=== PATIENT | female | born 1960 | race Caucasian/White ===

== ENCOUNTER → 2016-06-22 20:08 | Outpatient (CLI) | payer OTHER ==
[2013-10-30 07:46] VITALS: BMI 43.3
[~2016-06-22 20:08] MED LIST: CYCLOBENZAPRINE10 MG PO; IMITREX100 MG PO; PROZAC10 MG PO; VICOPROFEN 7.5/1 TAB PO; XANAX0.5 MG PO
[2016-06-22 20:45] LABS: ALBUMIN 3.7 g/dL (3.4-5.0); ANION GAP 16.3 mmol/L (8-16); BILIRUBIN - TOTAL 0.21 mg/dL (0.2-1.3); CALCIUM 9.1 mg/dL (8.5-10.1); CARBON DIOXIDE 24.8 mmol/L (21.0-32.0); CHOL - HDL RATIO 2.8 ratio (2.3-4.1); CREATININE - SERUM 1.1 mg/dL (0.6-1.3); LDL-HDL RATIO 1.5 ratio (1.5-3.5); POTASSIUM - SERUM 4.1 mmol/L (3.5-5.1); PROTEIN - SERUM 7.8 g/dL (6.4-8.2)
== END | disposition home or self-care (01) ==
LOC: D.LABREF 20:08
PROVIDERS: Family Medicine
DX: Z00.00 Encounter for general adult medical examination without abnormal findings (principal)

== ENCOUNTER → 2016-08-10 15:46 | Outpatient (CLI) | payer OTHER ==
[2013-10-30 07:46] VITALS: BMI 43.3
== END | disposition home or self-care (01) ==
LOC: D.LAB 15:45
PROVIDERS: Internal Medicine Gastroenterology
DX: R19.7 Diarrhea, unspecified (principal); R10.30 Lower abdominal pain, unspecified; R19.4 Change in bowel habit

== ENCOUNTER 2016-10-03 07:02 | Day surgery (SDC) | payer OTHER ==
[~2016-10-03] VITALS: Ht 165.1 cm; Wt 136.4 kg
[2016-10-03 07:53] VITALS: BP 119/68; Ht 165.1 cm; Wt 136.4 kg
[2016-10-03 08:14] LABS: BASOPHILS 0.5 % (0-2); EOSINOPHILS 3.9 % (0-7); HEMATOCRIT 43.2 % (36.0-48.0); HEMOGLOBIN 14.3 g/dL (12-16); IMMATURE GRANULOCYTES 0.2 % (0-5); LYMPHOCYTES 27.5 % (15-50); MCH 30.4 pg (26.0-34.0); MCHC 33.1 g/dL (31.0-37.0); MCV 91.9 fL (80.0-100.0); MEAN PLATELET VOLUME 11.4 fL (7.4-10.4); MONOCYTES 6.4 % (2-11); NEUTROPHILS 61.5 % (40-80); PLATELET COUNT 222 10x3/uL (130-400); RDW 13.3 % (11.5-14.5); WBC 5.6 10x3/uL (4.8-10.8)
[2016-10-03 08:26] LABS: ALBUMIN 3.3 g/dL (3.4-5.0); ALKALINE PHOSPHATASE 142 U/L (46-116); ALT (SGPT) 25 U/L (10-68); CALC OSMOLALITY 275 mosm/kg (275-300); CALCIUM 8.8 mg/dL (8.5-10.1); CHLORIDE - SERUM 105 mmol/L (98-107); CREATININE - SERUM 0.6 mg/dL (0.6-1.3); GLUCOSE 79 mg/dL (74-106); PROTEIN - SERUM 7.9 g/dL (6.4-8.2); SODIUM 139 mmol/L (136-145); UREA NITROGEN 11 mg/dL (7-18); eGFR NON AFRICAN AMERICAN > 90 mL/min (90-120)
--- NOTE | 2016-10-03 10:32 | NUR ---
MANUFACTURING QUALITY TECHNICIAN PRESENT FOR REDRAW OF K+.
--- NOTE | 2016-10-03 11:06 | NUR ---
1105 PIV DC W/CATHETER TIP INTACT JANNETTE WELL
--- NOTE | 2016-10-05 16:52 | OP ---
PATIENT NAME: EDELMIRA REYNA MEDICAL RECORD: [id number] :60 LOCATION:D.OPS ADMISSION DATE: SURGEON: SHEREE RODRIGUEZ DO OPERATION DATE: 10/03/16 PROCEDURE: Colonoscopy with polypectomy. INDICATIONS FOR PROCEDURE: Diarrhea and screening colonoscopy. SCOPE: Olympus video pediatric colonoscope. MEDICATIONS: Propofol 900 milligrams IV per anesthesia. WITHDRAWAL TIME: Greater than 15 minutes. ESTIMATED BLOOD LOSS: Minimal. COMPLICATIONS: None. PREP QUALITY: Poor to fair. FINDINGS: Informed consent was given. The patient was made comfortable with the above medication. After reaching an adequate level of sedation by slow IV push, the patient was placed on her left side. A digital rectal examination was performed and was normal. The endoscope was then advanced under direct visualization through the rectum to the cecum with visualization of the appendiceal orifice and ileocecal valve. The terminal ileum was intubated. The scope was then slowly withdrawn, and the mucosa was carefully examined. In the ascending colon there were two benign appearing sessile polyps which measured approximately 4 to 5 millimeters in diameter. They were both removed with hot forceps completely. In the transverse colon, five separate polyps were visualized. They were all flat polyps measuring from 4 millimeters to 7 millimeters. Four of these polyps were removed with snare cautery and completely retrieved and one was removed with hot forceps and retrieved. In the descending colon there were two small, benign appearing flat polyps measuring approximately 4 to 5 millimeters in size. They were both removed with hot forceps. In the sigmoid colon there w as mild diverticulosis. Retroflexion was performed in the rectum with small internal hemorrhoids noted which were not bleeding. The scope was then withdrawn from the patient. The patient tolerated the procedure well. There were no complications. IMPRESSIONS: 1. Multiple polyps as described above removed with a combination of hot forceps and snare cautery. 2. Mild diverticulosis of the sigmoid colon. 3. Small, nonbleeding internal hemorrhoids. 4. Poor to fair prep. PLAN/RECOMMENDATIONS: 1. Discharge home when recovery parameters are met. 2. Continue current medications. 3. High fiber diet. 4. Follow up biopsy specimen results. 5. Recommend a repeat colonoscopy in one year due to the number of polyps and prep not being adequate enough to definitively visualize the entire mucosa. OPERATIVE REPORT [id number] GARLETS,EDELMIRA DERRICKSHEREE CESAR DO at 1652 CC: [id number] DICTATION DATE: 10/03/16 1100 COLORECTAL SURGEON: DM 10/03/16 1319 [facility] 10/03/16 [facility] [address] [place] [address]
== END 2016-10-03 11:30 | disposition home or self-care (01) ==
LOC: D.OPS 07:02
PROVIDERS: Anesthesiology
DX: K63.5 Polyp of colon (principal); K57.30 Diverticulosis of large intestine without perforation or abscess without bleeding; K64.8 Other hemorrhoids; R19.7 Diarrhea, unspecified; Z01.812 Encounter for preprocedural laboratory examination